=== PATIENT | female | born 1965 | race Caucasian/White ===

== ENCOUNTER 2019-08-25 13:47 | Emergency (ER) | payer OTHER, SELFPAY ==
[2019-08-25 13:49] VITALS: BP 136/97; PULSE 78; RESP 18; TEMP 36.7; O2SAT 96; BMI 32.5
--- NOTE | 2019-08-25 15:21 | ED_ITS ---
Documented by User: Ayde Carter 08/30/19 08:32 HPI - Back Pain/Injury General: Chief Complaint: Back Pain/Injury Stated Complaint: L lower back pain Time Seen by Provider: 08/25/19 14:27 Source: patient History of Present Illness: HPI Narrative: Pt complaining of left lower back pain that started around 1315 today. She was voiding and stood up and noted some left flank/lower back pain. Review of Systems General: Reports: 10 or more systems reviewed and unremarkable except in HPI and below Musc: Reports: back pain PFSH ED PFSH: Surgical History (Updated 08/28/19 @ 16:49 by Tanya Diallo RN) H/O abdominoplasty H/O breast surgery BREAST REDUCTION Social History Smoking and tobacco status: never smoked Alcohol intake: never Marital status: Current occupational status: employed History of recent travel: No Physical Exam Const: COMMON NORMALS: no apparent distress, oriented x3, no limitations and alert GENERAL APPEARANCE: cooperative and comfortable ORIENTATION/CONSCIOUSNESS: Yes awake, Yes oriented to person, Yes oriented to place and Yes oriented to time HENMT: COMMON NORMALS: normocephalic, head/scalp atraumatic, external ears normal, EAC's normal, TM's normal bilaterally and external nose normal HEAD & SCALP: normal to inspection, normocephalic and atraumatic FACE & SINUS: normal facial exam, sinuses nontender and face symmetric NOSE: external nose normal, nares normal and no nasal discharge EXTERNAL EAR: Yes external ears normal EXTERNAL AUDITORY CANAL: EAC's normal TYMPANIC MEMBRANE: TM's normal bilaterally MOUTH: oral and palatal mucosa normal, lip normal and tongue normal THROAT: posterior oropharynx normal, tonsils normal and uvula midline Eye: COMMON NORMALS: PERRL, EOMs intact bilaterally and conjunctivae normal GENERAL EYE: normal appearance of both eyes and normal light reflex EYELID: eyelids normal CONJUNCTIVA: Yes conjunctivae normal PUPIL: Yes PERRL EOM: Yes EOM abnormal DIRECT OPHTHALMOSCOPY: Yes normal light reflex Neck/C-Spine: COMMON NORMALS: full ROM, no lymphadenopathy, supple, no meningeal signs, no JVD and thyroid normal GENERAL: Yes normal visual inspection THYROID: thyroid normal CERVICAL SPINE: Yes cervical ROM normal and Yes normal cervical lordosis Lymph: LYMPHATIC: no lymphadenopathy noted Chest: COMMONS NORMALS: inspection of chest normal and palpation of chest normal Resp: COMMON NORMALS: normal respiratory effort, no retractions and clear to auscultation bilaterally AUSCULTATION: clear to auscultation bilaterally Cardio: COMMON NORMALS: no JVD, regular rate, regular rhythm, S1 normal heart sound, S2 normal heart sound, no gallops, no clicks, no murmurs, no rub and peripheral pulses 2+ throughout RATE: regular rate RHYTHM: regular rhythm HEART SOUNDS: S1 normal and S2 normal PERIPHERAL PULSES: pulses 2+ throughout GI: COMMON NORMALS: normal to inspection, nondistended, normoactive bowel sounds, soft to palpation, non-tender and no masses PALPATION: Yes soft : COMMON NORMALS: Yes no CVA tenderness and Yes external appearance normal BLADDER/KIDNEY EXAM: Yes no CVA tenderness Back/Pelvis: COMMON NORMALS: no CVA tenderness, thoracic and lumbar spine normal to inspection, no thoracic nor lumbar tenderness and thoraco-lumbar ROM normal Extremity: COMMON NORMALS: normal to inspection, full ROM, normal capillary refill, no joint enlargement, no clubbing, cyanosis or edema, no calf tenderness and no pedal edema GENERAL: Yes normal exam except as noted Neuro: COMMON NORMALS: oriented x3, moves all extremities, no focal motor deficits, no sensory deficits noted and gait normal SENSORIUM/ORIENTATION: Yes alert, Yes oriented to person, Yes oriented to place and Yes oriented to time MENINGEAL SIGNS: Yes no meningeal signs Psych: COMMON NORMALS: mental status grossly normal, thought process normal, cooperative, affect normal, speech normal and activity/motor behavior normal SPEECH: Yes normal speech THOUGHT PROCESS: normal thought process Skin: COMMON NORMALS: no rashes or lesions noted, no wounds and skin turgor normal GENERAL SKIN EXAM: no rashes or lesions noted and turgor normal Course ED course: Pt states that around 1315 Vital Signs: Vital signs: Vital Signs Temperature 98.1 F 08/25/19 13:49 Pulse Rate 82 08/25/19 17:50 Respiratory Rate 16 08/25/19 17:50 Blood Pressure 116/72 08/25/19 17:50 Pulse Oximetry 97 08/25/19 17:50 MDM - Back Pain/Injury Lab Data: Labs: Lab Results 08/25/19 Range/Units 14:25 Urine Color Yellow (Yellow) Urine Appearance Clear (CLEAR) Urine pH 7 (5-7) Ur Specific Gravit y 1.010 (1.005-1.030) Urine Protein Neg (Negative) Urine Glucose (UA) Norm (Normal) Urine Ketones Negative (Negative) Urine Blood 2+ H (Negative) Urine Nitrate Negative (Negative) Urine Bilirubin Neg (NEGATIVE) Urine Urobilinogen Norm (Negative) mg/dL Ur Leukocyte Brittani ase Negative (Negative) Urine RBC 5-10 H (0-2) /hpf Urine WBC None (0-5) /hpf Ur Squamous Epith Cells 0-4 H (0-5) Urine Bacteria None (NONE) Discharge Plan Discharge Patient Disposition: Home, Self-Care Clinical Impression: Ureterolithiasis Condition: Stable Prescriptions: New hydrocodone-acetaminophen 5-325 mg tablet 1 tab PO Q6H PRN (Reason: pain) Qty: 14 RF: 0 ondansetron HCl [Zofran] 4 mg tablet 4 mg PO Q6H PRN (Reason: nausea and vomiting) Qty: 14 RF: 0 tamsulosin [Flomax] 0.4 mg capsule 0.4 mg PO DAILY Qty: 14 RF: 0 No Action pantoprazole 40 mg tablet,delayed release (DR/EC) 40 mg PO DAILY RF: 0 ergocalciferol (vitamin D2) 1,250 mcg (50,000 unit) capsule 50,000 unit PO Q7D RF: 0 furosemide 20 mg tablet 20 mg PO DAILY RF: 0 Discharge Orders: Discharge Order (Routine); Ordered 08/25/19 Ordered By: Gabi Calvert Referrals: Saud Li MD [Physician] - Chun Gonzalez APN [Family Provider] - Patient Instructions: Kidney Stones, Hydronephrosis (ED) Activity Restrictions/Additional Instructions: Return to the emergency department for worsening pain not controlled with your prescription medications, inability to urinate, burning with urination, fevers greater than 100.4, or any other concerns you may have. Case management will contact you to set you up with Dr. Li. Discharge Date/Time: 08/25/19 17:53 Sign Out Sign Out Data: Patient Sign Out occurred on 08/25/19 at 17:07. Patient's care was discussed, and care was transferred from to OKSANA Carrizales. Coding Level of Care Code ED Regional Environmental Manager for Chg Fwd Exam Comprehensive Documented by User: OKSANA Carrizales 08/25/19 17:50 HPI - Back Pain/Injury General: Chief Complaint: Back Pain/Injury Stated Complaint: L lower back pain Time Seen by Provider: 08/25/19 14:27 History of Present Illness: Associated symptoms: Deny abdominal pain, dysuria, nausea, urinary urgency or vomiting Review of Systems GI: Denies: abdominal pain, nausea or vomiting : Denies: flank pain, difficulty urinating, painful urination, urinary frequency, urinary urgency, urinary hesitancy, urinary dribbling, decreased urine ouput or vaginal bleeding Musc: Reports: back pain PFSH ED PFSH: Surgical History (Updated 08/28/19 @ 16:49 by Tanya Diallo RN) H/O abdominoplasty H/O breast surgery BREAST REDUCTION Social History Smoking and tobacco status: never smoked Alcohol intake: never Marital status: Current occupational status: employed History of recent travel: No Course Vital Signs: Vital signs: Vital Signs Temperature 98.1 F 08/25/19 13:49 Pulse Rate 82 08/25/19 17:50 Respiratory Rate 16 08/25/19 17:50 Blood Pressure 116/72 08/25/19 17:50 Pulse Oximetry 97 08/25/19 17:50 MDM - Back Pain/Injury MDM Narrative: Medical decision making narrative: I assumed care from BRUNA Yarbrough. Patient presents to ED today with complaints of pain in her left lower back that began abruptly while urinating. She denied any injury or trauma. Provider perform he ordered a CT lumbar spine as well as a UA that was pending. CT of her lumbar spine was essentially normal however after her urine returned showing hematuria and after speaking to patient I feel she most likely has a ureter stone. Instead of rescanning her I contacted the virtual radiologist and discussed her CT lumbar imaging. When I looked at images it appeared she had a left mild hydronephrosis and some mild left ureter dilatation. Radiologist agrees and confirms with these results. She believes there may be a small 2 to 3 mm stone in her ureter causing those symptoms. We will treat patient for a ureter stone and recommend she follow-up with Dr. Li. She was given a urinary strainer prior to discharge. Lab Data: Labs: Lab Results 08/25/19 Range/Units 14:25 Urine Color Yellow (Yellow) Urine Appearance Clear (CLEAR) Urine pH 7 (5-7) Ur Specific Gravit y 1.010 (1.005-1.030) Urine Protein Neg (Negative) Urine Glucose (UA) Norm (Normal) Urine Ketones Negative (Negative) Urine Blood 2+ H (Negative) Urine Nitrate Negative (Negative) Urine Bilirubin Neg (NEGATIVE) Urine Urobilinogen Norm (Negative) mg/dL Ur Leukocyte Brittani ase Negative (Negative) Urine RBC 5-10 H (0-2) /hpf Urine WBC None (0-5) /hpf Ur Squamous Epith Cells 0-4 H (0-5) Urine Bacteria None (NONE) Discharge Plan Discharge Patient Disposition: Home, Self-Care Clinical Impression: Ureterolithiasis Condition: Stable Prescriptions: New hydrocodone-acetaminophen 5-325 mg tablet 1 tab PO Q6H PRN (Reason: pain) Qty: 14 RF: 0 ondansetron HCl [Zofran] 4 mg tablet 4 mg PO Q6H PRN (Reason: nausea and vomiting) Qty: 14 RF: 0 tamsulosin [Flomax] 0.4 mg capsule 0.4 mg PO DAILY Qty: 14 RF: 0 No Action pantoprazole 40 mg tablet,delayed release (DR/EC) 40 mg PO DAILY RF: 0 ergocalciferol (vitamin D2) 1,250 mcg (50,000 unit) capsule 50,000 unit PO Q7D RF: 0 furosemide 20 mg tablet 20 mg PO DAILY RF: 0 Discharge Orders: Discharge Order (Routine); Ordered 08/25/19 Ordered By: Gabi Calvert Referrals: Saud Li MD [Physician] - Chun Gonzalez APN [Family Provider] - Patient Instructions: Kidney Stones, Hydronephrosis (ED) Activity Restrictions/Additional Instructions: Return to the emergency department for worsening pain not controlled with your prescription medications, inability to urinate, burning with urination, fevers greater than 100.4, or any other concerns you may have. Case management will contact you to set you up with Dr. Li. Discharge Date/Time: 08/25/19 17:53 Sign Out Sign Out Data: Patient Sign Out occurred on 08/25/19 at 17:07. Patient's care was discussed, and care was transferred from to OKSANA Carrizales. Coding Level of Care Code ED Regional Environmental Manager for Carole Fwd Exam Comprehensive
--- NOTE | 2019-08-25 15:40 | CTR_ITS ---
PROCEDURE INFORMATION: Exam: CT Lumbar Spine Without Contrast Exam date and time: 08/25/2019 3:45 PM Age: 54 years old Clinical indication: Patient HX: C/O acute L sided low back pain without injury; Additional info: Left low back pain TECHNIQUE: Imaging protocol: Computed tomography images of the lumbar spine without contrast. Total DLP: 2557.49 mGy-cm Radiation optimization: All CT scans at this facility use at least one of these dose optimization techniques: automated exposure control; mA and/or kV adjustment per patient size (includes targeted exams where dose is matched to clinical indication); or iterative reconstruction. COMPARISON: No relevant prior studies available. FINDINGS: Vertebrae: There are moderate facet degenerative changes in the lower lumbar spine. No acute fracture or subluxation. No bony destructive lesion. Discs/Spinal canal/Neural foramina: No disc herniations. No spinal canal stenosis. No neural foraminal narrowing. Sacrum/coccyx: There are moderate degenerative changes in the sacroiliac joints with a small amount of gas in the joints compatible with degenerative changes. No sacroiliitis. Soft tissues: Unremarkable. CT/CT lumbar spine wo con* [id number] IMPRESSION: 1. No acute fracture or subluxation. 2. Degenerative changes in the facet joints and lower lumbar spine. Radiation Dose CTDIVOL = (mGy): DLP = 2557.49 (mGy-cm)
[2019-08-25] MEDS: orphenadrine 30 mg/mL Inj 2 mL 60 MG IM (16:33)
[2019-08-25] MEDS: ketorolac 30 mg/mL INJ IM (16:33)
[2019-08-25 17:04] LABS: Add Urine Microscopic? YES; Bilirubin Urine Neg (NEGATIVE); Blood Urine 2+ (Negative); Glucose Urine UA Norm (Normal); Ketones Urine Negative (Negative); Leukocyte Esterase Urine Negative (Negative); Nitrate Urine Negative (Negative); Protein Urine Neg (Negative); Urine Appearance Clear (CLEAR); Urine Color Yellow (Yellow); Urobilinogen Urine Norm (Negative); pH Urine 7 (5-7)
[2019-08-25 17:07] LABS: Squamous Epithelial Cell Urine 0-4 (0-5)
[2019-08-25 17:50] VITALS: BP 116/72; PULSE 82; RESP 16; O2SAT 97
--- NOTE | 2019-08-26 14:38 | DCPLANNER ---
thoroughbred horse farm manager had message to schedule a follow up appointment for patient with Dr. Mendes office. thoroughbred horse farm manager called the office of Dr. Li, spoke with Ambar, gave clinic patients information. thoroughbred horse farm manager was told that patients information would be printed and given to Thais for review. Clinic will call patient with appointment information. thoroughbred horse farm manager will call for appointment information.
--- NOTE | 2019-08-27 12:58 | DCPLANNER ---
Patient has a follow up appointment scheduled for Tuesday, August 27, 2019 at 11:[address] Li. Clinic will call patient with appointment information.
--- NOTE | 2019-09-03 14:56 | DCPLANNER ---
Patient did attend appointment scheduled for 08.27.[address] Li.
== END 2019-08-25 17:53 | disposition home or self-care (01) ==
PROVIDERS: Nurse Practitioner Family; Emergency Provider Physician Assistant; Family Provider Nurse Practitioner Family
DX: N13.2 Hydronephrosis with renal and ureteral calculous obstruction (principal)
CPT/HCPCS: 72131; 81001; 96372; 99281; 99283; J1885; J2360

== ENCOUNTER 2019-08-27 09:49 | Outpatient (CLI) | payer OTHER, SELFPAY ==
--- NOTE | 2019-08-27 10:00 | XR_ITS ---
WS: [id number] XR KUB [id number] REASON FOR EXAM: URETEROLITHIASIS FINDINGS: The calculus in the left kidney previously described on a CT scan dated September 02, 2018 is n ot observed today. The ureters bilaterally appear to be normal. The bladder show no definite masses are calcified areas. The bowel gas was normal. XR/XR KUB 41692 IMPRESSION: Negative KUB of the abdomen.
== END 2019-08-27 09:50 | disposition home or self-care (01) ==
LOC: RAD 09:59
PROVIDERS: Family Provider Nurse Practitioner Family; PCP Nurse Practitioner Family; Visit Provider Urology
DX: N20.1 Calculus of ureter (principal)
CPT/HCPCS: 74018; 81001

== ENCOUNTER 2019-08-27 12:10 | Outpatient (CLI) | payer OTHER, SELFPAY ==
--- NOTE | 2019-08-27 12:00 | CT_ITS ---
WS: [id number] CT ABDOMEN AND PELVIS NONCONTRAST HISTORY: URETEROLITHIASIS TECHNIQUE: Imaging performed through the abdomen and pelvis. Coronal and sagittal reformats are submi tted. All CT scans at [facility] use at least one of these dose optimization techniques: automated exposure control; mA and/or kV adjustment per patient size (includes targeted exams where d ose is matched to clinical indication); or iterative reconstruction. DLP: 1219.44 mGycm COMPARISON: 09/02/2018 Lower thorax: Lung bases are clear. Small hiatal hernia. Liver: Normal, no mass or intrahepatic dilatation. Gallbladder: Unremarkable. Pancreas: Normal. Spleen: Normal. Adrenal glands: Normal. Right kidney: Normal size with no stones, masses or atrophy. Left kidney: Very mild dilatation of the renal pelvis and ureter. There is a calcification measuring 9 mm which appears to be in the distal LEFT ureter. The amount of hydronephrosis and ureteral dilatat ion is less than expected for the size calcification. Abdominal aorta and IVC are unremarkable. No free fluid, intraperitoneal air or significant lymphadenopathy. GI tract: Normal appendix. No GI tract obstruction. Abdominal wall: Small fat-containing umbilical hernia. Pelvis: No free fluid. Prior hysterectomy. Osseous structures: Unremarkable. CT/CT kidney stone 33835 IMPRESSION: 1. 9 mm calcification in the distal LEFT ureter. This could be 2 adjacent calc ifications or a single calcification. The amount of ureteral dilatation and pel kieran dilatation is not concordant with the size of the stone. There is only mini mal dilatation of the renal pelvis and ureter. 2. Prior hysterectomy. 3. Normal appendix. 4. Small hiatal hernia.
== END 2019-08-27 12:11 | disposition home or self-care (01) ==
LOC: RADWPI 12:13
PROVIDERS: Family Provider Nurse Practitioner Family; PCP Nurse Practitioner Family; Visit Provider Urology
DX: N20.1 Calculus of ureter (principal); K44.9 Diaphragmatic hernia without obstruction or gangrene; Z90.710 Acquired absence of both cervix and uterus
CPT/HCPCS: 74176

== ENCOUNTER 2019-08-29 13:22 | Day surgery (SDC) | payer OTHER, SELFPAY ==
[2019-08-28 16:43] VITALS: BMI 32.5
[2019-08-29] VITALS (11 sets, daily range): BP systolic 95–158; BP diastolic 44–100; PULSE 61–87; RESP 15–20; TEMP 36.8–37; O2SAT 90–100
--- NOTE | 2019-08-29 | SCC_ITS ---
Procedure Done: Cystoscopy, left retrograde ureteropyelogram, left ureteroscopy with laser lithotripsy, no stent 18.7 seconds of fluoroscopic guidance, for a cumulative dose of 4.64 mGy, was provided to Dr. Li by the radiology department. C-arm images of the pelvis were saved for the patient's permanent record. [facility]
--- NOTE | 2019-08-29 13:32 | SC_ITS ---
WS: [id number] C-arm [place] for Urology REASON FOR EXAM: Left ureteral stone, planned ureteroscopy FINDINGS: Fluoroscopic guidance was made for urology to insertion of the contrast in the left ureter. The catheter was inserted under guidance and contrast was partially injected during the procedure. [place]/C-arm [place] for Urology IMPRESSION: Localization of the left ureter injection with fluoroscopic guidance.
[2019-08-29] MEDS: sodium chloride 0.9% 1,000 ML 30 ML IV (13:55)
--- NOTE | 2019-08-29 14:27 | ANES.PREANE2 ---
Pre-Anesthetic Assessment Pre-Anesthetic Assessment: Height/Weight: Height 1.57 m Weight 80.739 kg Temp Pulse Resp BP Pulse Ox 98.6 F 87 18 158/80 97 08/29/19 13:39 08/29/19 13:39 08/29/19 13:39 08/29/19 13:54 08/29/19 13:39 Preop Diagnosis: Large left distal ureteral stone Proposed Procedure: Operation Date: 08/29/19 15:05 Proposed Procedures p Cystoscopy 17077 13433 N20.1(Not Applicable) - Saud Li MD s Retrograde Pyelogram(Left) - MD nimco Cao Flexible Ureteroscopy(Not Applicable) - MD nimco Cao Laser Lithotripsy(Not Applicable) - MD nimco Cao Ureteral Stent Placement(Not Applicable) - Saud Li MD Last intake: Intake Last Liquid Date 08/29/19 Last Liquid Time 09:00 Last Solid Date 08/28/19 Last Solid Time 21:30 Exam: Pre-Anes Outpt Exam: alert, oriented x 3, clear to auscultation bilaterally and regular rate & rhythm Airway: Submandibular: WNL Cervical ROM: WNL MP: 1 Dentition: Caps CV/HEM: Comments: 2 Blocks/2FOS without angina/CONNELLY : Comments: left ureteral stone Neuropsych: Neuropsych: COVARRUBIAS Comments: hx migranes, last one month Anesthetic Plan: ASA status: 3 Anesthesia: General Meds/Allergies Current Medications: Current Medications Generic Name Dose Route Start Last Admin Trade Name Freq PRN Reason Stop Dose Admin Sodium Chloride 1,000 mls @ 30 ml s/hr 08/29/19 13:45 08/29/19 13:55 Sodium Chloride 0.9% IV 08/30/19 13:44 30 mls/hr .Q24H AYO Administration PFSH Anesthesia PFSH: Surgical History (Updated 08/28/19 @ 16:49 by Tanya Diallo RN) H/O abdominoplasty H/O breast surgery BREAST REDUCTION Social History Smoking and tobacco status: never smoked Alcohol intake: never Marital status: Current occupational status: employed History of recent travel: No Data Anesthesia Cardiac Studies: No Data to Display
--- NOTE | 2019-08-29 16:02 | W.PM.OPSUD ---
Surgery/Procedure H&P Update DATE OF PROCEDURE: August 29, 2019 DATE H&P PERFORMED: 08/27/19 H&P UPDATE INFORMATION: I have reviewed H&P completed within last 30 days and No changes to prior documentation PREOP DIAGNOSIS: Large left distal ureteral stone PLANNED PROCEDURE: Operation Date: 08/29/19 15:05 Proposed Procedures p Cystoscopy 34664 70272 N20.1(Not Applicable) - MD nimco Cao Retrograde Pyelogram(Left) - MD nimco Cao Flexible Ureteroscopy(Not Applicable) - MD nimco Cao Laser Lithotripsy(Not Applicable) - MD nimco Cao Ureteral Stent Placement(Not Applicable) - Saud Li MD
--- NOTE | 2019-08-29 16:03 | PM.OP ---
Operative Report Date of procedure: August 29, 2019 Pre-op Diagnosis: Large left distal ureteral stone Post-op diagnosis: same Procedure Done: Cystoscopy, left retrograde ureteropyelogram, left ureteroscopy with laser lithotripsy, no stent Pathology: Stone fragments Surgeon: Saud Li Anesthesia: General Estimated blood loss: Minimal Urine output: Not measured Complications: None Findings: Stone in the expected position. Fragmented completely with laser lithotripsy. All fragments removed. Ureter looked good enough post stone removal to avoid leaving a stent. Condition: stable Disposition: PACU Brief History: Elsa is a very pleasant 54-year-old white female recently evaluated the emergency department for severe left sided back pain radiating into the front and associated with nausea and vomiting. Suspicion for possible back injury led to a lumbar CT which demonstrated mild left hydronephrosis. A follow-up KUB demonstrated a new calcification in the area of the left pelvis not previously identified and for that reason a follow-up stone protocol CT scan was recommended and confirmed the left pelvic calcification to actually be in the left ureter. Based on the size of the stone it was felt that it had a low chance of spontaneous passage and after detailed discussion of her options including conservative, ESWL, endoscopy she chose the latter. We reviewed the potential for staged procedure if difficult access to the stone and in the rare instance antegrade access to the kidney to relieve obstruction and pass a stent. Procedure: After routine preoperative evaluation examination and obtaining of informed consent she was taken to the operating suite on 08/29/2019 where general anesthesia was administered without difficulty after appropriate timeout was performed, SCDs confirmed to be functioning, preoperative antibiotics administered, beta-supa protocol confirmed. Prepped and draped in the usual sterile fashion in dorsolithotomy position pain careful attention to avoiding pressure points. 21 [place] cystoscope with 30 degree lens was introduced into the urethra meatus and advanced into the bladder under videoscopy. Bladder was systematically examined. There was no stone in the bladder. No other gross pathology was identified. An 8 [place] cone-tipped catheter was intubated into the left ureteral orifice for left retrograde ureteropyelogram which demonstrated a filling defect consistent with a stone seen on KUB and CT scan. The ureter proximal to the stone was somewhat dilated. Flexible guidewire was passed up the left ureter bypassing the stone and into the renal pelvis. The distal ureter below the stone was then dilated with a 15 [place] 4 cm balloon with no waist. The wire was secured to the drapes as a safety wire and a 7.5 [place] offset semirigid ureteroscope was advanced next to the guidewire up the ureter to the stone which was encountered in its expected position. A 365 ?m homing laser fiber was utilized to fragment the stone into small enough pieces that were both washed out of the ureter as well as removed with grasping forceps and stone basket. On final inspection all stone fragments were confirmed to be out of the ureter. The distal ureter was examined closely and there was not significant inflammatory changes and for that reason it was decided to not leave a stent. The cystoscope was passed into the bladder and the fragment to the been dropped into the bladder were flushed free. The left ureteral orifice was confirmed to be effluxing well. Bladder was drained and the procedure completed. She tolerated procedure well without complications and was awakened in the operating room and returned to the recovery in stable condition.
[2019-08-29] MEDS: levofloxacin-dextrose 5 % 500 MG/100 ML PREMIX 100 MG IV (16:18)
[2019-08-29] MEDS: iohexol 300 mg/mL 50 mL Btl (OR ONLY) XX (16:59)
--- NOTE | 2019-08-29 17:23 | SUR.PHASEI ---
6243 PATIENT TO PACU AT THIS TIME. NO DISTRESS. RR EVEN AND UNLABORED. PLACED ON SIMPLE MASK AT 8L, SPO2 97%. PATIENT NOTED TO BE SLEEPING.
--- NOTE | 2019-08-29 17:56 | SUR.PHASEI ---
1751 PATIENT TO OPS AT THIS TIME. DENIES PAIN. RR EVEN AND UNLABORED. ASSISTED UPTO BSC IN OPS, GAIT STEADY.
== END 2019-08-29 18:40 | disposition home or self-care (01) ==
PROVIDERS: Family Provider Nurse Practitioner Family; PCP Nurse Practitioner Family; Visit Provider Urology
PROC: 0TJB8ZZ Inspection of Bladder, Via Natural or Artificial Opening Endoscopic (ICD-10-PCS; CPT 52000; principal; 2019-08-29 15:05)
PROC: (CPT 74420; 2019-08-29 15:05)
PROC: 0TJ98ZZ Inspection of Ureter, Via Natural or Artificial Opening Endoscopic (ICD-10-PCS; CPT 52351; 2019-08-29 15:05)
PROC: (CPT 52353; 2019-08-29 15:05)
DX: N20.1 Calculus of ureter (principal)
CPT/HCPCS: 52353; 12345; 76000; 82365; 88300; C1725; J1100; J1956; J2001; J2405; J2704; J2710; J2765; J3010; J3490; J7030

== ENCOUNTER 2019-09-01 09:46 | Emergency (ER) | payer OTHER, SELFPAY ==
--- NOTE | 2019-09-01 09:54 | ED_ITS ---
Entered by Sherrie Gomez, acting as scribe for Kylie Cuevas DO HPI - General Adult General: Chief complaint: Back Pain/Injury Stated complaint: KIDNEY PAIN Time Seen by Provider: 09/01/19 09:55 History of Present Illness: HPI narrative: 54 yo female presents with flank pain. Pt states that she had a kidney stone removal on , there is still a partial stone left. Pt states that she is having pain still. Pt states that she has taken 2 hydrocodone and 1 zofran, that doesn't seem to help. Pt states that she is passing blood clots. MD complaint: flank pain Associated symptoms: Reports nausea; Deny chest pain, dyspnea, headache(s) or rash Review of Systems Const: Denies: fever, chills or fatigue ENMT: Denies: throat pain Card: Denies: chest pain or swelling of feet/ankles Resp: Denies: shortness of breath or productive cough GI: Reports: nausea : Denies: difficulty urinating Musc: Reports: back pain; Denies: extremity swelling Skin/Breast: Denies: rash Neuro: Denies: headache, numbness in extremities or weakness in extremities Endo: Reports: other (passing blood clots) PFSH ED PFSH: Medical History Acid reflux Kidney stones Surgical History H/O abdominoplasty H/O breast surgery BREAST REDUCTION History of hysterectomy Social History Smoking and tobacco status: never smoked Alcohol intake: never Marital status: Current occupational status: employed History of recent travel: No Physical Exam HENMT: MOUTH: moist mucous membranes abnormal (mildly dry) Cardio: COMMON NORMALS: regular rate, regular rhythm, S1 normal heart sound and S2 normal heart sound RATE: regular rate RHYTHM: regular rhythm HEART SOUNDS: S1 normal and S2 normal GI: PALPATION: Yes tender Details: LUQ and Yes guarding : BLADDER/KIDNEY EXAM: Yes CVA tenderness Back/Pelvis: GENERAL BACK: Yes CVA tenderness CVA tenderness: left Extremity: GENERAL: Yes normal exam except as noted Course Vital Signs: Vital signs: Vital Signs Temperature 97.8 F 09/01/19 09:57 Pulse Rate 59 L 09/01/19 09:57 Respiratory Rate 16 09/01/19 10:25 Blood Pressure 154/102 09/01/19 09:57 Pulse Oximetry 97 09/01/19 10:25 MDM - General Adult MDM Narrative: Medical decision making narrative: pt has renal colic but appears to have passed her left distal ureter stone. I have discussed the details with Dr Li, he states since no infection she likely is having pain rom edema. He rec we switch to percocet and have her f/u with him, She is tolerating pos well, she knows to return if worse, any problem, any change Lab Data: Attestation: I reviewed the patient's lab results. Labs: Lab Results 09/01/19 09/01/19 09/01/19 Range/Units 09:50 10:15 10:15 WBC 10.0 (4.0-10.0) 10^3/ uL RBC 4.75 (4.1-5.3) 10^6/u L Hgb 14.3 (11.5-15.3) g/dL Hct 41.9 (37.0-47.0) % MCV 88.2 (81-99) fL MCH 30.1 (28.0-34.0) pg MCHC 34.1 (30.0-36.0) g/dL RDW 12.0 L (12.1-15.1) % Plt Count 247 (130-400) 10^3/c mm MPV 9.3 (7.4-10.4) fL Neut % (Auto) 64.2 % Lymph % (Auto) 23.0 % Tillman % (Auto) 9.2 % Eos % (Auto) 2.2 % Baso % (Auto) 0.7 % Neut # (Auto) 6.4 (1.8-7.7) 10^3/u L Lymph # (Auto) 2.3 (0.8-4.8) 10^3/u L Tillman # (Auto) 0.9 (0.2-0.9) 10^3/u L Eos # (Auto) 0.2 (0.0-0.8) 10^3/u L Baso # (Auto) 0.1 (0.0-0.1) 10^3/u L Nucleated RBC % (a uto) 0 % Nucleated RBCs # 0.0 /100WBC Sodium 140 (136-145) mmol/L Potassium 3.7 (3.5-5.1) mmol/L Chloride 103 (98-107) mmol/L Carbon Dioxide 25 (22-29) mmol/L Anion Gap 15.7 (5-19) BUN 10 (6-20) mg/dL Creatinine 0.6 (0.5-0.9) mg/dL GFR Calculation 103.8 (90-130) mL/min Glucose 203 H (65-115) mg/dL Calcium 9.4 (8.5-10.5) mg/dL Total Bilirubin 0.6 (0.15-1.2) mg/dL AST 89 H (0-32) U/L ALT 156 H (0-33) U/L Alkaline Phosphata se 101 (35-105) IU/L Total Protein 7.5 (6.6-8.7) g/dL Albumin 3.9 (3.5-5.2) g/dL Globulin 3.6 (1.3-4.6) g/dL Urine Color Yellow (Yellow) Urine Appearance Sl hazy (CLEAR) Urine pH 5 (5-7) Ur Specific Gravit y 1.020 (1.005-1.030) Urine Protein 1+ H (Negative) Urine Glucose (UA) Norm (Normal) Urine Ketones Negative (Negative) Urine Blood 3+ H (Negative) Urine Nitrate Negative (Negative) Urine Bilirubin Neg (NEGATIVE) Urine Urobilinogen Norm (Negative) mg/dL Ur Leukocyte Brittani ase Negative (Negative) Urine RBC 40-50 H (0-2) /hpf Urine WBC None (0-5) /hpf Ur Squamous Epith Cells 0-4 H (0-5) Urine Bacteria 2+ H (NONE) Urine Mucus Trace Imaging Data^: KUB: Radiologist's impression: Patient: Joyce Najera #: [id number] : 1965Acct#:[id number] Age/Sex: 54 / FADM Date: 09/01/19 Loc: ERRoom/Bed: Attending Dr: Ordering Provider/Ordering MD: Kylie Cuevas DO Date of Service: 09/01/19 Procedure(s): XR KUB portable [id number] Accession Number(s): [id number] Report Number: [id number] WS: [id number] XR KUB portable [id number] REASON FOR EXAM: renal stone FINDINGS: A density is seen in the left kidney suggesting a staghorn calculus. There is excessive motion on these projections. The pelvis appear to be normal with no definite stones seen. XR/XR KUB portable [id number] IMPRESSION: Density in the midportion of the left kidney suggesting a staghorn calculus. The films are somewhat underpenetrated and show motion. Dictated By:Kobe Chow DO Signed By:Kobe Chow DOSigned Date/Time:09/01/19 1122 Discharge Plan Discharge Patient Disposition: Home, Self-Care Clinical Impression: Renal colic Condition: Stable Prescriptions: New Percocet 5-325 mg tablet 1 tab PO Q4H PRN (Reason: pain) Qty: 10 RF: 0 No Action pantoprazole 40 mg tablet,delayed release (DR/EC) 40 mg PO DAILY RF: 0 ergocalciferol (vitamin D2) 1,250 mcg (50,000 unit) capsule 50,000 unit PO Q7D RF: 0 hydrocodone-acetaminophen 5-325 mg tablet 1 tab PO Q6H PRN (Reason: pain) Qty: 14 RF: 0 ondansetron HCl [Zofran] 4 mg tablet 4 mg PO Q6H PRN (Reason: nausea and vomiting) Qty: 14 RF: 0 furosemide 20 mg tablet 20 mg PO DAILY RF: 0 Tylenol 325 mg Tablet 650 mg PO QID PRN (Reason: Pain) RF: 0 montelukast 10 mg Tablet 10 mg PO DAILY RF: 0 Discharge Orders: Discharge Order (Routine); Ordered 09/01/19 Ordered By: Kylie Cuevas Referrals: Saud Li MD [Physician] - 4-7 days Chun Gonzalez APN [Primary Care Provider] - Discharge Diet: Advance as tolerated Discharge Activity: Resume usual activity Patient Instructions: Renal Colic (ED) Activity Restrictions/Additional Instructions: stop hydrocodone while taking percocet, drink plenty of fluids Coding Level of Care Code ED Almond Huller for Chg Fwd Exam Detailed The documentation recorded by the scribe, Gomez,Kialy, accurately reflects the service I personally performed and the decisions made by me, Kylie Cuevas, Sep 01, 2019 09:46
[2019-09-01 09:57] VITALS: BP 154/102; PULSE 59; RESP 20; TEMP 36.6; O2SAT 96; BMI 32.5
--- NOTE | 2019-09-01 10:03 | US_ITS ---
WS: [id number] Exam: Abdominal survey by ultrasound HISTORY: Low back pain on the left The liver appear to be normal. Right kidney measures 12.08 x 5.21 x 4.71 cm. Cortex measured 1.40 cm. No hydronephrosis no nephrolit hiasis. The left kidney measured 13.51 cm x 7.30 x 6.24 cm, the cortex measured 1.50 cm. The aorta was normal Along the left kidney is a echogenic foci consistent with a stone. The urinary bladder appeared to be normal. Normal jets were seen. US/US renal BI with bladder IMPRESSION: A stone in the left kidney.
[2019-09-01 10:17] VITALS: RESP 18
[2019-09-01 10:18] VITALS: RESP 18
[2019-09-01 10:24] LABS: Basophils # 0.1 10^3/uL (0.0-0.1); Basophils % 0.7 %; Eosinophils # 0.2 10^3/uL (0.0-0.8); Eosinophils % 2.2 %; Hematocrit 41.9 % (37.0-47.0); Hemoglobin 14.3 g/dL (11.5-15.3); Lymphocytes # 2.3 10^3/uL (0.8-4.8); Mean Corpuscular HGB Conc 34.1 g/dL (30.0-36.0); Mean Corpuscular Hemoglobin 30.1 pg (28.0-34.0); Mean Corpuscular Volume 88.2 fL (81-99); Mean Platelet Volume 9.3 fL (7.4-10.4); Monocytes # 0.9 10^3/uL (0.2-0.9); Monocytes % 9.2 %; Neutrophils # 6.4 10^3/uL (1.8-7.7); Neutrophils % 64.2 %; Nucleated Red Blood Cells % 0 %; Platelet Count 247 10^3/cmm (130-400); Red Blood Count 4.75 10^6/uL (4.1-5.3)
[2019-09-01] MEDS: sodium chloride 0.9% 1,000 ML 999 ML IV (10:24)
[2019-09-01] MEDS: ketorolac 30 mg/mL INJ 15 MG IVP (10:24)
[2019-09-01] MEDS: ondansetron 2 mg/ML SDV 2 mL 4 MG IVP (10:24)
[2019-09-01 10:25] VITALS: RESP 16; O2SAT 97
[2019-09-01] MEDS: morphine 4 mg/mL SDV 1 mL IVP (10:25)
[2019-09-01 10:28] LABS: Add Urine Microscopic? YES; Bilirubin Urine Neg (NEGATIVE); Blood Urine 3+ (Negative); Glucose Urine UA Norm (Normal); Ketones Urine Negative (Negative); Leukocyte Esterase Urine Negative (Negative); Nitrate Urine Negative (Negative); Protein Urine 1+ (Negative); Urine Appearance SL Hazy (CLEAR); Urine Color Yellow (Yellow); Urobilinogen Urine Norm (Negative); pH Urine 5 (5-7)
[2019-09-01 10:35] LABS: RBC Urine 40-50 /hpf (0-2)
[2019-09-01 10:36] LABS: Add Urine Culture? Yes; Bacteria Urine 2+; Mucus Urine TRACE; Squamous Epithelial Cell Urine 0-4 (0-5)
[2019-09-01 10:42] LABS: Alanine Aminotransferase 156 U/L (0-33); Albumin Level 3.9 g/dL (3.5-5.2); Alkaline Phosphatase 101 IU/L (35-105); Anion Gap 15.7 (5-19); Aspartate Amino Transferase 89 U/L (0-32); Blood Urea Nitrogen 10 mg/dL (6-20); Calcium 9.4 mg/dL (8.5-10.5); Carbon Dioxide 25 mmol/L (22-29); Chloride 103 mmol/L (98-107); Creatinine Clr Calc Pharmacy 104.2869; Globulin 3.6 g/dL (1.3-4.6); Glomerular Filtration Rate 103.8 mL/min (90-130); Glucose 203 mg/dL (65-115); Potassium 3.7 mmol/L (3.5-5.1); Sodium 140 mmol/L (136-145); Total Bilirubin 0.6 mg/dL (0.15-1.2); Total Protein 7.5 g/dL (6.6-8.7)
--- NOTE | 2019-09-01 10:54 | XR_ITS ---
WS: [id number] XR KUB portable [id number] REASON FOR EXAM: renal stone FINDINGS: A density is seen in the left kidney suggesting a staghorn calculus. There is excessive mot ion on these projections. The pelvis appear to be normal with no definite stones seen. XR/XR KUB portable [id number] IMPRESSION: Density in the midportion of the left kidney suggesting a staghorn calculus. The films are somewhat underpenetrated and show motion.
[2019-09-01 12:41] VITALS: RESP 16; O2SAT 94
[2019-09-01] MEDS: oxyCODONE-APAP 5-325 mg Tablet 1 TAB PO (12:41)
[2019-09-01 12:45] VITALS: BP 145/88; PULSE 78; RESP 16; O2SAT 94
--- NOTE | 2019-09-02 14:33 | DCPLANNER ---
manager mba had message to schedule a follow up appointment for patient with Dr. Li. manager mba called the office of Dr. Li, spoke with Ambar, gave clinic patients information. manager mba was told that patients information would be printed and given to Thais for review. Clinic will call patient with appointment information. manager mba will call for appointment information.
--- NOTE | 2019-09-03 15:40 | DCPLANNER ---
Patient had an appointment scheduled for 08.27.[address] iL. Patient did attend the appointment.
== END 2019-09-01 12:45 | disposition home or self-care (01) ==
PROVIDERS: Emergency Provider Emergency Medicine; Family Provider Nurse Practitioner Family; PCP Nurse Practitioner Family
DX: N23 Unspecified renal colic (principal)
CPT/HCPCS: 12345; 36415; 74018; 76770; 76857; 80053; 81001; 85025; 87086; 96360; 96361; 96374; 96375; 99283; J1885; J2270; J2405; J7030

== ENCOUNTER 2019-11-28 08:27 | Outpatient (CLI) | payer OTHER, SELFPAY ==
--- NOTE | 2019-11-28 08:00 | XR_ITS ---
WS: [id number] XR KUB [id number] REASON FOR EXAM: URETEROLITHIASIS FINDINGS: The renal shadows appear to be normal. No definite stones in the kidney, ureters, are urina ry bladder area. No air-fluid levels are seen. XR/XR KUB [id number] IMPRESSION: Nonspecific abdominal findings.
== END 2019-11-28 08:28 | disposition home or self-care (01) ==
LOC: RAD 08:31
PROVIDERS: PCP Nurse Practitioner Family; Visit Provider Urology
DX: N20.1 Calculus of ureter (principal)
CPT/HCPCS: 74018; 81001

== ENCOUNTER 2020-03-18 07:51 | Outpatient (CLI) | payer OTHER, SELFPAY ==
--- NOTE | 2020-03-18 07:53 | MM_ITS ---
WS: [id number] SCREENING DIGITAL MAMMOGRAM WITH CAD HISTORY: Screening exam. COMPARISON: 03/13/2018 and 09/01/2015 Bilateral CC and MLO views submitted. Computer aided detection analyzed. Breast composition: There are scattered areas of fibroglandular density. Ovoid asymmetry measures 7 m m in the lateral mid LEFT breast was not present on the prior study. Not definitely visualized on the MLO projection. Otherwise breast parenchyma is stable. MM/[place] [id number] IMPRESSION: BI-RADS: 0-Incomplete: Need additional imaging evaluation FOLLOW UP: Need Additional Imaging LEFT breast: Spot compression views (CC ). True ML. Ultrasound to follow if abn ormality persists.
== END 2020-03-18 07:52 | disposition home or self-care (01) ==
LOC: RADSHAW 07:51
PROVIDERS: PCP Nurse Practitioner Family; Visit Provider Nurse Practitioner Family
DX: Z12.31 Encounter for screening mammogram for malignant neoplasm of breast (principal); N64.89 Other specified disorders of breast
CPT/HCPCS: 77067

== ENCOUNTER 2020-05-11 08:47 | Outpatient (CLI) | payer OTHER, SELFPAY ==
--- NOTE | 2020-05-11 08:54 | US_ITS ---
WS: [id number] ADDITIONAL VIEWS LEFT MAMMOGRAM LEFT BREAST ULTRASOUND HISTORY: LT BREAST ASYMMETRY COMPARISON: 03/18/2020, 03/13/2018 LEFT MAMMOGRAM: Spot compression views and true ML. Ovoid asymmetry persists in the lateral LEFT breast at a middle depth measuring 5 mm. Not definitely present on the lateral projections but probably above the nipple line. LEFT BREAST ULTRASOUND 2-D and color Doppler imaging submitted. Ultrasound at 3:00, 4 cm from the nipple demonstrates a hypoechoic nodule measuring 3 x 2 x 4 mm. Thi s probably corresponds to the mammographic abnormality. US/US breast LT limited* [id number] IMPRESSION: BI-RADS: 3-Probably Benign FOLLOW UP: 6 Month Follow-up New nodule in the lateral LEFT breast at 3:00 on the ultrasound measures 4 mm. Favor this is probably a benign nodule such as a complex cyst. As this is new r ecommend follow-up mammogram and ultrasound in 6 months.
== END 2020-05-11 08:48 | disposition home or self-care (01) ==
LOC: RADSHAW 08:52
PROVIDERS: PCP Nurse Practitioner Family; Visit Provider Nurse Practitioner Family
DX: N64.89 Other specified disorders of breast (principal); N63.25 Unspecified lump in the left breast, overlapping quadrants
CPT/HCPCS: 76642; 77065

== ENCOUNTER → 2020-07-08 11:41 | Outpatient (BNVA) | payer OTHER, SELFPAY | PROVIDERS: PCP Nurse Practitioner Family; Visit Provider Surgery | DX: Z11.59 Encounter for screening for other viral diseases (principal); Z12.11 Encounter for screening for malignant neoplasm of colon | CPT/HCPCS: 87635 ==

== ENCOUNTER 2020-07-14 09:01 | Day surgery (SDC) | payer OTHER, SELFPAY ==
[2020-07-10 14:11] VITALS: BMI 28.9
[2020-07-14 09:26] VITALS: BP 125/70; PULSE 69; RESP 16; TEMP 36.4; O2SAT 99
[2020-07-14 09:43] LABS: Glucose Point of Care 99 mg/dL (70-110)
[2020-07-14] MEDS: sodium chloride 0.9% 1,000 ML 30 ML IV (09:43)
--- NOTE | 2020-07-14 10:28 | ANES.PREANE2 ---
Pre-Anesthetic Assessment Pre-Anesthetic Assessment: Height/Weight: Height 1.57 m Weight 71.668 kg Temp Pulse Resp BP Pulse Ox 97.5 F L 69 16 125/70 99 07/14/20 09:26 07/14/20 09:26 07/14/20 09:26 07/14/20 09:26 07/14/20 09:26 Preop Diagnosis: screening colonoscopy Proposed Procedure: Operation Date: 07/14/20 10:00 Proposed Procedures p Colonoscopy 79242 Z12.11(Not Applicable) - Joey Argueta MD Familial anesthetic complications: None Last intake: Intake Last Liquid Date 07/13/20 Last Liquid Time 20:30 Last Solid Date 07/12/20 Last Solid Time 20:00 Social: Social History: No alcohol and No tobacco Exam: Pre-Anes Outpt Exam: alert, oriented x 3, clear to auscultation bilaterally and regular rate & rhythm Airway: Cervical ROM: WNL MP: 3 Dentition: Full GI: GI: GERD Metabolic: Metabolic: DM Anesthetic Plan: ASA status: 2 Anesthesia: MAC Risk of > 500 ml blood loss (7ml/kg in children): No Meds/Allergies Current Medications: Current Medications Generic Name Dose Route Start Last Admin Trade Name Freq PRN Reason Stop Dose Admin Sodium Chloride 1,000 mls @ 30 ml s/hr 07/14/20 09:15 07/14/20 09:43 Sodium Chloride 0.9% IV 07/15/20 09:14 30 mls/hr .Q24H AYO Administration PFSH Anesthesia PFSH: Medical History GERD (gastroesophageal reflux disease) Kidney stones Surgical History H/O abdominoplasty H/O breast surgery BREAST REDUCTION History of hysterectomy History of lumpectomy of left breast age 21 years old a cyst Family History Father Bleeding disorder free bleeder Sister Cancer colon cancer Other CAD (coronary artery disease) Diabetes Denies family history of Anesthesia complication Hypertension Social History Smoking and tobacco status: never smoked Alcohol intake: never Household members: spouse Marital status: Current occupational status: employed History of recent travel: No Data Anesthesia Other Labs: Laboratory Results - last 48 hr 07/14/20 09:36 POC Glucose 99 Cardiac Studies: No Data to Display
--- NOTE | 2020-07-14 12:05 | W.PM.OPSFHP ---
Same Day Surgery H&P Indication for Procedure/HPI DATE OF PROCEDURE: July 14, 2020 CHIEF COMPLAINT/INDICATIONFOR SURGICAL PROCEDURE: family history of colon cancer, and colon polyps PREOP DIAGNOSIS: screening colonoscopy PLANNED PROCEDRUE: Operation Date: 07/14/20 10:00 Proposed Procedures p Colonoscopy 09775 Z12.11(Not Applicable) - Joey Argueta MD Medications/Allergies* Home Medications Medication Instructions Recorded Confirmed Type ergocalciferol (vitamin D2) 50,000 unit PO Q7D 08/25/19 07/14/20 History pantoprazole 40 mg PO DAILY 08/25/19 07/14/20 History furosemide 20 mg PO DAILY 08/28/19 07/14/20 History acetaminophen [Tylenol] 650 mg PO QID PRN 09/01/19 07/14/20 History montelukast 10 mg PO DAILY 09/01/19 07/14/20 History hydrochlorothiazide 12.5 mg tablet 12.5 mg PO DAILY 05/28/20 07/14/20 History metformin 500 mg tablet 500 mg PO BID 05/28/20 07/14/20 History naltrexone 8 mg-bupropion 90 mg 2 tab PO BID 05/28/20 07/14/20 History tablet,extended release sitagliptin 25 mg tablet 100 mg PO DAILY 06/08/20 07/14/20 History Allergies/Adverse Reactions Allergy/AdvReac Type Severity Reaction Status Date / Time Beef Containing Products Allergy ALGY-Swell Verified 07/10/20 14:07 Lip/Tongue/Throat Pork/Porcine Containing Allergy ALGY-Swell Verified 07/10/20 14:07 Products Lip/Tongue/Throat Current Medications: Generic Name Dose Route Start Last Admin Trade Name Freq PRN Reason Stop Dose Admin Sodium Chloride 1,000 mls @ 30 mls/hr 07/14/20 09:15 07/14/20 09:43 Sodium Chloride 0.9% IV 07/15/20 09:14 30 mls/hr .Q24H AYO Administration Pertinent History/Comorbid Conditions* Medical History (Updated 06/13/20 @ 11:33 by Joey Argueta MD) GERD (gastroesophageal reflux disease) Kidney stones Surgical History (Updated 06/12/20 @ 08:47 by Joey Argueta MD) H/O abdominoplasty H/O breast surgery BREAST REDUCTION History of hysterectomy History of lumpectomy of left breast age 21 years old a cyst Family History (Updated 06/12/20 @ 08:39 by Guadalupe Islas LPN) Diabetes CAD (coronary artery disease) Bleeding disorder Father free bleeder Cancer Sister colon cancer Denies family history of Anesthesia complication Hypertension Social History Smoking and tobacco status: never smoked Alcohol intake: never Household members: spouse Marital status: Current occupational status: employed History of recent travel: No Pertinent Exam Findings alert, oriented x 3 and regular rate & rhythm Recommendations Surgery/Procedure today Coding Level of Care Code 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
[2020-07-14 12:34] VITALS: BP 129/71; PULSE 83; RESP 14; TEMP 36.2; O2SAT 94
[2020-07-14 12:52] VITALS: BP 116/83; PULSE 86; RESP 16; O2SAT 97
--- NOTE | 2020-07-14 14:12 | ANE.PACU2 ---
Inpatient post-anesthesia follow up: Airway intact: Yes Vital signs: Temperature 97.1 F Pulse Rate 86 Respiratory Rate 16 Blood Pressure 116/83 Pulse Oximetry 97 Oxygen Delivery Me thod Room Air Oxygen Flow Rate Fraction of Inspir ed Oxygen Hydration adequate: Yes Nausea and vomiting: No Pain level: 1 Mental status: Baseline
== END 2020-07-14 13:17 | disposition home or self-care (01) ==
PROVIDERS: PCP Nurse Practitioner Family; Visit Provider Surgery
PROC: 0DJD8ZZ Inspection of Lower Intestinal Tract, Via Natural or Artificial Opening Endoscopic (ICD-10-PCS; CPT 45378; principal; 2020-07-14 10:00)
DX: Z12.11 Encounter for screening for malignant neoplasm of colon (principal); D12.5 Benign neoplasm of sigmoid colon; K57.30 Diverticulosis of large intestine without perforation or abscess without bleeding; Z80.0 Family history of malignant neoplasm of digestive organs; Z86.010 Personal history of colon polyps; K21.9 Gastro-esophageal reflux disease without esophagitis; Z83.3 Family history of diabetes mellitus; Z82.49 Family history of ischemic heart disease and other diseases of the circulatory system; E11.9 Type 2 diabetes mellitus without complications; Z79.84 Long term (current) use of oral hypoglycemic drugs
CPT/HCPCS: 12345; 36416; 45380; 82962; 88305; J2704; J7030

== ENCOUNTER 2020-11-30 08:06 | Outpatient (CLI) | payer OTHER, SELFPAY ==
--- NOTE | 2020-11-30 08:15 | XRR_ITS ---
PROCEDURE INFORMATION: Exam: XR Abdomen Exam date and time: 11/30/2020 8:20 AM Age: 55 years old Clinical indication: Condition or disease; Kidney or ureter condition; Calculus (stone) in kidney; Prior surgery; Surgery type: Hysterectomy; Additional info: N20.0 - calculus of kidney TECHNIQUE: Imaging protocol: XR of the abdomen. Views: Frontal supine view of the abdomen. 1 View. COMPARISON: CR XR KUB [id number] 11/28/2019 8:40 AM FINDINGS: Tubes, catheters and devices: Surgical clips overlying the right pelvis. Gastrointestinal tract: Prominent stool. Organs: Partial obscuration of the renal fossa by bowel gas and stool. Vasculature: Subcentimeter pelvic calcifications, the majority of which are believed to be vascular in etiology. If urolithiasis is of clinical concern, CT may be of benefit for further evaluation. Bones/joints: Mild degenerative change. XR/XR KUB [id number] IMPRESSION: Subcentimeter pelvic calcifications, the majority of which are believed to be vascular in etiology. If urolithiasis is of clinical concern, CT may be of benefit for further evaluation.
== END 2020-11-30 08:07 | disposition home or self-care (01) ==
LOC: RAD 08:10
PROVIDERS: PCP Nurse Practitioner Family; Visit Provider Urology
DX: N20.0 Calculus of kidney (principal)
CPT/HCPCS: 74018; 81003

== ENCOUNTER 2020-12-11 10:14 | Outpatient (CLI) | payer OTHER, SELFPAY ==
--- NOTE | 2020-12-11 10:15 | US_ITS ---
WS: [id number] ULTRASOUND LEFT BREAST HISTORY: N63.20 - Unspecified lump in the left breast, unspecified quadrant COMPARISON: 05/11/2020 03/18/2020 TECHNIQUE: 2-D and Doppler. Hypoechoic slightly ovoid nodule at 3:00, 4 cm from the nipple measures 4 x 3 x 4 mm. No increase in size since the prior examination. Favor this is probably benign complex cyst. US/US breast LT limited* [id number] IMPRESSION: BI-RADS: 3-Probably Benign FOLLOW-UP: 6 Month Follow-up Patient to return for annual mammogram in February 2021. This complex nodule w ill be reevaluated at that time. Ultrasound may be necessary to document contin ued stability.
== END 2020-12-11 10:15 | disposition home or self-care (01) ==
LOC: RAD 10:17
PROVIDERS: PCP Nurse Practitioner Family; Visit Provider Surgery
DX: N63.25 Unspecified lump in the left breast, overlapping quadrants (principal)
CPT/HCPCS: 76642

== ENCOUNTER 2021-05-14 18:09 | Emergency (ER) | payer OTHER, SELFPAY ==
[2021-05-14 19:00] VITALS: BP 136/84; PULSE 77; RESP 16; TEMP 36.8; O2SAT 97
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
--- NOTE | 2021-05-14 20:35 | XRR_ITS ---
PROCEDURE INFORMATION: Exam: XR Nasal Bones Exam date and time: 05/14/2021 8:35 PM Age: 56 years old Clinical indication: Nose pain; Additional info: Injury TECHNIQUE: Imaging protocol: XR of the nasal bones. Views: Minimum of 3 views COMPARISON: CR Cervical Spine AP/Lat* [id number] 04/27/2018 10:46 AM FINDINGS: Sinuses: Well aerated. No opacification. Bones/joints: No fracture. Soft tissues: Unremarkable. XR/XR nasal bones min 3V [id number] IMPRESSION: Unremarkable. Radiation Dose CTDIVOL = (mGy): DLP = (mGy-cm)
[2021-05-14] MEDS: oxymetazoline 0.05% Nasal Spray 15 mL 2 SPRAY NOSTRIL-B (21:18)
[2021-05-14 21:19] VITALS: BP 132/77; PULSE 16; RESP 78; O2SAT 98
[2021-05-14] MEDS: cephALEXin 500 mg Capsule PO (21:19)
--- NOTE | 2021-05-17 11:32 | DCPLANNER ---
leadership development manager had message to schedule a follow up appointment for patient with Dr. Edwards, ENT. leadership development manager emailed patients information to both Darya and Nayely at the General Surgery / ENT clinic. Patients information will be printed and reviewed. Clinic will call patient with appointment information.
--- NOTE | 2021-05-18 16:13 | DCPLANNER ---
Patient was seen by Dr. Haro.
== END 2021-05-14 21:20 | disposition home or self-care (01) ==
PROVIDERS: Emergency Provider Nurse Practitioner Family; PCP Nurse Practitioner Family
DX: S02.2XXA Fracture of nasal bones, initial encounter for closed fracture (principal); S01.21XA Laceration without foreign body of nose, initial encounter; W22.8XXA Striking against or struck by other objects, initial encounter
CPT/HCPCS: 70160; 99283

== ENCOUNTER 2021-05-15 19:29 | Emergency (ER) | payer OTHER, SELFPAY ==
[2021-05-15 19:37] VITALS: BP 125/89; PULSE 109; RESP 16; TEMP 36.8; O2SAT 96; BMI 28.9
--- NOTE | 2021-05-15 19:37 | W.ED.ALLEREA ---
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 Patient today had some venison and after consuming the venison she started to having a reaction. Patient had taken some Benadryl with minimal relief. Patient comes in due to soreness in her throat. Patient appears well. Patient appears no acute distress. Patient does have some mild facial redness and swelling. Patient does have an injury to her nose with a nasal bone fracture and was seen yesterday for which probably lends more to the swelling. Patient denies taking any of the antibiotic. Review of Systems General: Reports: 10 or more systems reviewed and unremarkable except in HPI and below ENMT: Reports: other (Itchy throat and difficulty swallowing) PFS ED PFSH: Medical History Colon polyps GERD (gastroesophageal reflux disease) Kidney stones Surgical History H/O abdominoplasty H/O breast surgery BREAST REDUCTION History of hysterectomy History of lumpectomy of left breast age 21 years old a cyst Status post colonoscopy (07/14/20) Family History Father Bleeding disorder free bleeder Sister Cancer colon cancer Other CAD (coronary artery disease) Diabetes Denies family history of Anesthesia complication Hypertension Social History Smoking and tobacco status: never smoked Alcohol intake: never Household members: spouse Marital status: Current occupational status: employed History of recent travel: No Physical Exam Const: COMMON NORMALS: no acute distress and patient oriented x3 GENERAL APPEARANCE: cooperative HENMT: COMMON NORMALS: normocephalic, TM's normal bilaterally and Normal external nose present HEAD & SCALP: normocephalic and other (Facial swelling) NOSE: Normal external nose present TYMPANIC MEMBRANE: TM's normal bilaterally MOUTH: Normal oral and palatal mucosa present THROAT: posterior oropharynx normal Eye: GENERAL EYE: appearance normal, both eyes and all related structures Neck/C-Spine: COMMON NORMALS: full ROM Lymph: LYMPHATIC: no lymphadenopathy noted Chest: COMMONS NORMALS: normal inspection of the chest Resp: COMMON NORMALS: normal respiratory effort EFFORT & INSPECTION: Yes able to speak in complete sentences Cardio: COMMON NORMALS: regular rate and regular rhythm RATE: regular rate RHYTHM: regular rhythm GI: COMMON NORMALS: non-tender Back/Pelvis: COMMON NORMALS: thoracic and lumbar spine normal to inspection Extremity: COMMON NORMALS: normal to inspection Neuro: COMMON NORMALS: patient oriented x3 and moves all extremities Psych: COMMON NORMALS: mental status grossly normal and cooperative Skin: COMMON NORMALS: no rashes or lesions noted GENERAL SKIN EXAM: no rashes or lesions noted Course ED course: 2109, patient reported some improvement in symptoms although now complains of some neck discomfort. No respiratory difficulty is noted. Heart rates regular. Skin is warm and dry. We will give patient a dose of famotidine 40 mg IV, and a half a milligram Ativan IV for comfort. We will continue to monitor patient. 2309, patient reports relief of symptoms. Recommended that we continue with prednisone daily for the next 5 days and the use of Zyrtec and Claritin routinely for the next 5 days. Encourage plenty of fluids. Patient can use Benadryl for as needed for any breakthrough symptoms. Patient reported understanding and agreed to plan. 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 Patient reports that she had not had problems with eating deer meat before but today had a reaction. Patient does usually have reactions with beef and pork products alone. On exam patient does have some redness and swelling of the face posterior pharynx is open without any asymmetry or swelling. Respirations are even lungs are clear to auscultation. There is a light red rash covering patient's body. Differential diagnosis includes but not limited to contact dermatitis, allergic reaction, anaphylaxis. Patient was given 0.3 mg of epinephrine IM with good response to swelling of the face and difficulty swallowing. Patient was then given Solu-Medrol IV, famotidine IV and a half a milligram Ativan. Patient had resolution of symptoms prior to discharge. We will continue patient with prednisone 20 mg twice daily for the next 5 days. I also recommended patient have an EpiPen in case of recurrence of reaction or new reaction. Patient reported understanding of care plan and need for follow-up or return to the ER. Discharge Plan Discharge Patient Disposition: Home Clinical Impression: Allergic reaction Qualifiers: Encounter type: initial encounter Qualified Code(s): T78.40XA - Allergy, unspecified, initial encounter Condition: Stable Prescriptions: New prednisone 20 mg tablet 20 mg PO BID 5 Days Qty: 10 RF: 0 EpiPen 2-David 0.3 mg/0.3 mL auto-injector 0.3 mg IM Q15M PRN (Reason: hypersensitivity reaction) Qty: 2 RF: 0 No Action hydrochlorothiazide 12.5 mg tablet 12.5 mg PO DAILY RF: 0 Contrave 8-90 mg tablet extended release 2 tab PO BID RF: 0 Janumet XR 100-1,000 mg tablet, ER multiphase 24 hr 1 tab PO DAILY RF: 0 garlic 1,000 mg capsule 4,000 mg PO DAILY RF: 0 (DME) provitalize 0 .ROUTE .MEDSUPPLY RF: 0 pantoprazole 40 mg tablet,delayed release (DR/EC) 40 mg PO DAILY RF: 0 ergocalciferol (vitamin D2) 1,250 mcg (50,000 unit) capsule 50,000 unit PO Q7D RF: 0 furosemide 20 mg tablet 20 mg PO DAILY RF: 0 acetaminophen [Tylenol] 325 mg Tablet 650 mg PO QID PRN (Reason: Pain) RF: 0 montelukast 10 mg Tablet 10 mg PO DAILY RF: 0 cephalexin 500 mg capsule 500 mg PO BID 7 Days Qty: 14 RF: 0 Discharge Orders: Discharge ED (Routine); Ordered 05/15/21 Ordered By: Chris Garner Referrals: Lisa Mccollum APN [Primary Care Provider] - Discharge Diet: Usual diet Discharge Activity: Increase activity as tolerated Patient Instructions: Allergic Reaction, Opioid Safety Activity Restrictions/Additional Instructions: Take prednisone 20 mg twice a day for the next 5 days. Use Zyrtec as you normally do every morning and Claritin at night to maintain antihistamine response. Use diphenhydramine, Benadryl, as needed for breakthrough symptoms. Make sure to drink plenty of water. Have epinephrine?pen prescription filled in case of recurrence or other anaphylactic reaction. Use the pen if you have severe respiratory difficulty, swelling of the face and tongue, or difficulty swallowing with nausea and vomiting with hives. Follow-up with primary care for further instruction. Return to the ER for worsening symptoms or new concerns. Coding Level of Care Code ED Outside Sales Engineer for Carole Fwron Exam Comprehensive
[2021-05-15 19:43] VITALS: BP 125/89; PULSE 109; RESP 16; TEMP 36.8; O2SAT 96
[2021-05-15] MEDS: EPINEPHrine 1 mg/mL INJ 0.3 MG IM (20:10)
[2021-05-15] MEDS: sodium chloride 0.9% 1,000 ML 999 ML IV (20:10)
[2021-05-15 20:17] VITALS: BP 125/89; PULSE 86; RESP 15; O2SAT 99
[2021-05-15] MEDS: diphenhydrAMINE 50 mg/mL SDV 1mL 25 MG IVP (20:25)
[2021-05-15 20:54] VITALS: BP 116/69; PULSE 91; RESP 18; O2SAT 94
[2021-05-15] MEDS: famotidine 20 mg/2 mL INJ 40 MG IVP (21:54)
[2021-05-15] MEDS: LORazepam 2 mg/mL INJ 1 mL 0.5 MG IVP (21:54)
[2021-05-15 22:22] VITALS: BP 109/70; PULSE 93; RESP 20; O2SAT 93
[2021-05-15] MEDS: cephALEXin 500 mg Capsule PO (22:31)
[2021-05-15] MEDS: predniSONE 20 mg Tablet PO (23:29)
[2021-05-15 23:32] VITALS: BP 109/63; PULSE 84; RESP 20; O2SAT 95
== END 2021-05-15 23:48 | disposition home or self-care (01) ==
PROVIDERS: Emergency Provider Nurse Practitioner Family; PCP Nurse Practitioner Family
DX: T78.40XA Allergy, unspecified, initial encounter (principal)
CPT/HCPCS: 96361; 96372; 96374; 96375; 99284; J0171; J1200; J2060; J2930; J3490; J7030; J7512

== ENCOUNTER 2022-06-24 11:51 | Outpatient (CLI) | payer BC, SELFPAY ==
--- NOTE | 2022-06-24 | ECG_ITS ---
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 Interpretive Statements NAME OF STUDY: TREADMILL STRESS ECHOCARDIOGRAM INDICATION: Chest Pain, PROCEDURE: At the baseline, the patient's blood pressure was 138/88 with a heart rate of 66. The baseline electrocardiogram showed normal sinus rhythm with normal ST-Ts. Minimal left axis deviation. Possible old septal IA. Poor R wave progression. The patient exercised for 9 minutes and 46 seconds on a standard Viraj protocol. Patient attained a maximum heart rate of 152 beats per minute(93% of the maximum predicted heart rate) with a blood pressure at the peak exercise of 249/97 mm Hg. The EKG at the peak exercise revealed [address] depressions in the inferolateral leads. Patient did not have any chest pain or any significant cardiac arrhythmias with the exercise During the recovery phase, there were no new changes. The EKG reverted back to the baseline Blood pressure at the end of the recovery phase was 113/71 mm Hg with a heart rate of 83 per minute. CONCLUSION: 1. Borderline abnormal EKG response to treadmill exercise . The Grajeda treadmill score was 3 (moderate ) 2. No exercise-induced chest pain or cardiac arrhythmia 3. Good exercise tolerance, attained a maximum of 13.5 METs 4. Hypertensive response to exercise In view of the hypertensive response to exercise, the specificity of the EKG changes is low Electronically Signed On 07-08-2022 11:25:19 CHEMICAL SPRAYER by Alexa Jefferson M.D. [email or web address]
--- NOTE | 2022-06-24 12:04 | USCV_ITS ---
Najera Joyce Age: 57 Gender: F : 1965 Exam Date: 06/24/2022 12:36 Ordering Phys: Alexa Jefferson MD ([email or web address]) Technologist: Reji Barrett Exam Location: [facility] [place] Indication: CHEST PAIN Rhythm: Sinus Patient History: DM TYPE 2 Cardiac Medications: NONE Medications in past 24 hours: NONE Contrast: Stress Results Protocol: Viraj Total dose(mL): Exercise Duration (min:sec): 9:46 METS: 10 Resting HR: 69 Resting BP: 138 / 88 Peak HR: 152 Peak BP: 249 / 97 Max Predicted HR: 162 94 % Max Predicted HR Target HR: 138 Double Product: 23924 Stress Summary: Excellent exercise tolerance, achieving 10 METS and 93.83% of max predicted heart rate. BP Response: NORMAL Reason for Termination: TARGET HR REACHED Cardiac Symptoms: SOB THAT RESOLVED QUICKLY IN RECOVERY ECG Analysis Resting ECG: Please see separate report Stress ECG: Please see separate report Arrhythmia: Please see separate report MEASUREMENTS (Male/Female) Normal Values FINDINGS Baseline echocardiogram revealed normal LV size and ejection fraction. Segmental wall motion analysis revealing no gross wall motion maladies. With exercise, there was good augmentation of all the segments with no exercise-induced wall motion abnormalities. During the recovery phase, there was no new changes. CONCLUSIONS Normal echocardiographic response to exercise. Low probability for coronary ischemia, based on the above findings Dr Alexa Jefferson MD FAC (Electronically Signed) Final Date: 24 June 2022 16:15 S
[2022-06-24 12:08] VITALS: BMI 30.7
[2022-06-24 13:14] VITALS: BP 113/71; PULSE 84
== END 2022-06-24 11:52 | disposition home or self-care (01) ==
PROVIDERS: PCP Nurse Practitioner Family; Visit Provider Internal Medicine Cardiovascular Disease
DX: R07.9 Chest pain, unspecified (principal); I10 Essential (primary) hypertension
CPT/HCPCS: 93017; 93350

== ENCOUNTER 2022-08-15 14:44 | Outpatient (CLI) | payer BC, SELFPAY ==
--- NOTE | 2022-08-15 15:04 | XR_ITS ---
WS: [id number] Exam: XR KUB [id number] Date/Time of Exam: 08/15/2022 3:13 PM Reason For Exam: Kidney Stones Comparison 11/30/2020. No bowel obstruction or free air. No calcifications noted in the region of the kidneys. Nonspecific b ilateral pelvic calcifications. Surgical clips in the right pelvis. Bony structures are intact. No si gn of organ enlargement. XR/XR KUB [id number] IMPRESSION: 1. No acute process identified.
== END 2022-08-15 14:45 | disposition home or self-care (01) ==
PROVIDERS: PCP Nurse Practitioner Family; Visit Provider Urology
DX: N20.0 Calculus of kidney (principal)
CPT/HCPCS: 74018; 81003

== ENCOUNTER 2024-06-06 11:01 | Outpatient (CLI) | payer BC, SELFPAY ==
--- NOTE | 2024-06-06 11:00 | MM_ITS ---
WS: [id number] BILATERAL SCREENING DIGITAL TOMOSYNTHESIS MAMMOGRAM WITH CAD HISTORY: SCREENING COMPARISON: 03/18/2020, 03/13/2018 Bilateral CC and MLO views with tomosynthesis and synthetic mammography submitted. Computer aided det ection analyzed. Breast composition: There are scattered areas of fibroglandular density. No suspicious masses, microc alcifications or architectural distortion. MM/MM scr BI tomosynthesis [id number] IMPRESSION: BI-RADS: 2 - Benign. FOLLOW UP: 1 Year Follow-up
== END 2024-06-06 11:02 | disposition home or self-care (01) ==
LOC: MOBLMAM 11:02
PROVIDERS: PCP Nurse Practitioner Family; Visit Provider Nurse Practitioner Family
DX: Z12.31 Encounter for screening mammogram for malignant neoplasm of breast (principal); R92.323 Mammographic fibroglandular density, bilateral breasts
CPT/HCPCS: 77063; 77067

== ENCOUNTER 2025-06-17 10:41 | Outpatient (CLI) | payer OTHER, SELFPAY ==
--- NOTE | 2025-06-17 10:40 | MM_ITS ---
WS: [id number] BILATERAL SCREENING DIGITAL TOMOSYNTHESIS MAMMOGRAM WITH CAD HISTORY: SCREENING COMPARISON: 03/18/2020, 06/06/2024 Bilateral CC and MLO views with tomosynthesis and synthetic mammography submitted. Computer aided detection analyzed. Breast composition: There are scattered areas of fibroglandular density. No suspicious masses, microcalcifications or architectural distortion. Mild distortion in the upper outer quadrant of the LEFT breast at a posterior depth with an area of fat necrosis. MM/MM scr BI tomosynthesis [id number] IMPRESSION: BI-RADS: 2 - Benign. FOLLOW UP: 1 Year Follow-up
== END 2025-06-17 10:42 | disposition home or self-care (01) ==
LOC: MOBLMAM 10:45
PROVIDERS: PCP Nurse Practitioner Family; Visit Provider Nurse Practitioner Family
DX: Z12.31 Encounter for screening mammogram for malignant neoplasm of breast (principal); R92.323 Mammographic fibroglandular density, bilateral breasts; N64.1 Fat necrosis of breast
CPT/HCPCS: 77063; 77067